=== PATIENT | female | born 1970 | race Caucasian/White ===

== ENCOUNTER 2023-01-27 01:02 | Emergency (ER) | payer OTHER ==
[2023-01-27 01:07] VITALS: BP 144/74; PULSE 78; RESP 16; TEMP 98.7
[2023-01-27] MEDS ORDERED: ACETAMINOPHEN 325MG TABLET PO ONE (01:15)
== END 2023-01-27 03:12 | disposition home or self-care (01) ==
LOC: ER 01:28
DX: S63.612A Unspecified sprain of right middle finger, initial encounter (principal); S80.02XA Contusion of left knee, initial encounter; X58.XXXA Exposure to other specified factors, initial encounter; Y93.89 Activity, other specified; Y92.89 Other specified places as the place of occurrence of the external cause; Y99.8 Other external cause status
CPT/HCPCS: 73130; 73562; 99284